=== PATIENT | female | born 1980 | race Caucasian/White ===

== ENCOUNTER 2017-06-27 11:58 | Inpatient (IN) | payer OTHER ==
[~2017-06-27] VITALS: Ht 165.1 cm; Wt 59.9 kg
== END 2017-06-30 09:38 | disposition home or self-care (01) | DRG 343 ==
LOC: ER 11:58 → SEC-K 06-28 08:23 → OB/GYN 06-28 08:23
PROVIDERS: Specialist
PROC: BU4CZZZ Ultrasonography of Uterus and Ovaries (ICD-10-PCS; 2017-06-28)
PROC: 0DTJ0ZZ Resection of Appendix, Open Approach (ICD-10-PCS; principal; 2017-06-28 14:00)
DX: K35.89 Other acute appendicitis (principal); K29.70 Gastritis, unspecified, without bleeding

== ENCOUNTER 2020-06-26 08:55 | Day surgery (SDC) | payer OTHER | END 2020-06-26 23:00 | disposition home or self-care (01) | LOC: CIR.AMB 08:55 | PROVIDERS: ATTEND Obstetrics & Gynecology | DX: N84.0 Polyp of corpus uteri (principal); Z20.822 Contact with and (suspected) exposure to COVID-19 ==